=== PATIENT | male | born 1975 | race Caucasian/White ===

== ENCOUNTER 2018-08-17 17:26 | Emergency (ER) | payer MEDICAID ==
[~2018-08-17] VITALS: Ht 182.9 cm; Wt 100.5 kg
[~2018-08-17 17:26] MED LIST: HYDR-3980 PO; IBUP800T48 PO; ONDA4TAB14 PO
[2018-08-17 17:32] VITALS: Ht 182.9 cm; Wt 100.5 kg
[2018-08-17] MEDS ORDERED: ACETAMINOPHEN 500 MG TAB PO STA (20:08)
[2018-08-17] MEDS ORDERED: IBUPROFEN 600 MG TAB PO ONE (20:30)
[2018-08-17] MEDS ORDERED: IBUP-1542 PO (21:01)
[2018-08-17 21:15] VITALS: BP 140/80; PULSE 67; RESP 18
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
== END 2018-08-17 21:15 | disposition home or self-care (01) ==
LOC: FTE 17:26
DX: S52.202D Unspecified fracture of shaft of left ulna, subsequent encounter for closed fracture with routine healing (principal); F17.210 Nicotine dependence, cigarettes, uncomplicated; R40.2412 Glasgow coma scale score 13-15, at arrival to emergency department; X58.XXXD Exposure to other specified factors, subsequent encounter
CPT/HCPCS: 29125; Z7502; Z7610

== ENCOUNTER 2018-09-11 10:02 | Emergency (ER) | payer MEDICAID ==
[~2018-09-11] VITALS: Wt 95.7 kg
[~2018-09-11 10:02] MED LIST changes: +IBUP-1542 PO
[2018-09-11] MEDS ORDERED: SOD CHLORIDE 0.9% 1,000 ML IV STA ×2 (11:17→13:21)
[2018-09-11] MEDS ORDERED: DIPHTH/TET/ACEL PERTUSS (ADULT) 0.5 ML VIAL IM* ONE (11:30)
[2018-09-11] MEDS ORDERED: AZITHROMYCIN 500MG/NS (PMX) 250 ML IV STA (13:21)
[2018-09-11] MEDS ORDERED: CEFTRIAXONE 1 GM/50 ML (PMX) 50 ML IVPB STA (13:21)
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
[2018-09-11] MEDS ORDERED: IBUP800T48 PO (13:41)
[2018-09-11 22:14] VITALS: BP 134/89; PULSE 69; RESP 20
== END 2018-09-11 22:21 | disposition home or self-care (01) ==
LOC: FTE 10:02 → E/R 22:21
DX: S62.622A Displaced fracture of middle phalanx of right middle finger, initial encounter for closed fracture (principal); S06.0X9A Concussion with loss of consciousness of unspecified duration, initial encounter; J18.1 Lobar pneumonia, unspecified organism; S13.9XXA Sprain of joints and ligaments of unspecified parts of neck, initial encounter; S02.2XXA Fracture of nasal bones, initial encounter for closed fracture; M79.641 Pain in right hand; Y04.0XXA Assault by unarmed brawl or fight, initial encounter; Z23 Encounter for immunization
CPT/HCPCS: 29125; 70450; 70486; 71045; 71250; 73130; 80053; 80307; 81003; 82550; 82553; 84484; 85025; 85610; 85730; 87040; 90471; 96374; 96375; J0456; J0696; J7030; Z7502